=== PATIENT | female | born 1990 | race Caucasian/White ===

== ENCOUNTER 2018-03-21 17:39 | Emergency (ER) | payer OTHER ==
[~2018-03-21] VITALS: Ht 160 cm; Wt 77.1 kg
[~2018-03-21 17:39] MED LIST: AMOXICILLIN 50500 MG PO; TRINATE TABLET1 TAB PO
[2018-03-21] MEDS ORDERED: MOBIC7.5 MG PO (18:38)
[2018-03-21 18:50] VITALS: BP 132/75
== END 2018-03-21 18:50 | disposition home or self-care (01) ==
LOC: M.ERS 17:39
DX: S93.491A Sprain of other ligament of right ankle, initial encounter (principal); F17.210 Nicotine dependence, cigarettes, uncomplicated; X58.XXXA Exposure to other specified factors, initial encounter; Y93.89 Activity, other specified; Y92.89 Other specified places as the place of occurrence of the external cause; Y99.8 Other external cause status